=== PATIENT | male | born 1980 | race Asian ===

== ENCOUNTER 2018-04-20 10:24 | Day surgery (SDC) | payer OTHER ==
[2018-04-20] MEDS ORDERED: SOD CHLORIDE 0.9% 1,000 ML IV (11:30)
[2018-04-20] MEDS: LIDOCAINE 1% (MPF) 5 ML VIAL ×2 (14:10→14:20)
[2018-04-20] MEDS: FENTAnyl 50 MCG/ML VIAL (14:20)
[2018-04-20] MEDS: MIDAZOLAM 1 MG/ML 2 ML INJ (14:25)
== END 2018-04-20 17:50 | disposition home or self-care (01) ==
LOC: SDS 10:24
DX: C82.10 Follicular lymphoma grade II, unspecified site (principal)
CPT/HCPCS: 38221; 77012; 88305; 88311; 88313

== ENCOUNTER 2018-05-08 07:53 | Day surgery (SDC) | payer OTHER ==
[2018-05-08] MEDS: SOD CHLORIDE 0.9% 1,000 ML IV ×2 (08:57→11:00)
[2018-05-08] MEDS: CEFAZOLIN 1 GM/50 ML (PMX) 50 ML IVPB ×2 (10:00→10:50)
[2018-05-08] MEDS: FENTAnyl 50 MCG/ML VIAL (10:50)
[2018-05-08] MEDS: LIDOCAINE 1%/EPI 30 ML INJ (10:50)
[2018-05-08] MEDS: MIDAZOLAM 1 MG/ML 2 ML INJ (10:51)
[2018-05-08] MEDS: HEPARIN 1000 UNITS/ML 10 ML INJ (10:59)
[2018-05-08] MEDS: POLYMYXIN/BACITRACIN 1L IRRIG IRR (11:30)
[2018-05-08] MEDS ORDERED: HYDROCODONE/APAP (5/325) TAB PO (12:00)
== END 2018-05-08 13:50 | disposition home or self-care (01) ==
LOC: SDS 07:53
DX: C82.11 Follicular lymphoma grade II, lymph nodes of head, face, and neck (principal)
CPT/HCPCS: 36561; 76942

== ENCOUNTER 2018-07-03 10:01 | Emergency (ER) | payer OTHER ==
[2018-07-03] MEDS: LIDOCAINE 1% (MPF) 5 ML VIAL SC (11:00)
[2018-07-03 11:23] LABS: ADD MAN DIFF? NO
[2018-07-03 11:26] LABS: ABNORMAL IP MESSAGE 1; BASOPHIL # 0.1 10^3/ul (0.0-0.1); BASOPHILS % 0.4 % (0.0-2.0); EOSINOPHILS % 0.1 % (0.0-7.0); HEMATOCRIT 44.1 % (42.0-52.0); HEMOGLOBIN 14.4 g/dl (14.0-18.0); LYMPHOCYTES # 2.2 10^3/ul (0.8-2.9); LYMPHOCYTES % 18.5 % (15.0-51.0); MEAN CORPUSCULAR HEMOGLOBIN 29.3 pg (29.0-33.0); MEAN CORPUSCULAR HGB CONC 32.7 g/dl (32.0-37.0); MEAN CORPUSCULAR VOLUME 89.6 fl (82.0-101.0); MEAN PLATELET VOLUME 9.5 fl (7.4-10.4); MONOCYTE # 1.6 10^3/ul (0.3-0.9); MONOCYTES % 13.6 % (0.0-11.0); NEUTROPHIL # 7.8 10^3/ul (1.6-7.5); NEUTROPHILS % 66.4 % (39.0-77.0); PLATELET COUNT 409 10^3/UL (140-415); POSITIVE DIFF @See below; RED BLOOD COUNT 4.92 10^6/ul (4.70-6.10); RED CELL DISTRIBUTION WIDTH 13.7 % (11.5-14.5)
[2018-07-03 11:26] LABS: WHITE BLOOD COUNT 11.8 10^3/ul (4.8-10.8)
[2018-07-03 11:43] LABS: ANION GAP 8 (5-13); BLOOD UREA NITROGEN 11 mg/dl (7-20); CALCIUM 9.2 mg/dl (8.4-10.2); CARBON DIOXIDE 32 mmol/L (21-31); CHLORIDE 103 mmol/L (97-110); CREATININE 0.66 mg/dl (0.61-1.24); Estimated GFR > 60 mL/min (>60); GLUCOSE 88 mg/dl (70-220); POTASSIUM 3.7 mmol/L (3.5-5.1); SODIUM 143 mmol/L (135-144)
[2018-07-03 11:45] LABS: INR 0.89; PARTIAL THROMBOPLASTIN TIME 30.4 Sec (23.0-35.0); PROTIME 12.1 Sec (11.9-14.9); PT RATIO 0.9
[2018-07-03] MEDS: POLYMYXIN/BACITRACIN 1L IRRIG IRR (15:27)
== END 2018-07-03 15:47 | disposition home or self-care (01) ==
LOC: E/R 10:01
DX: C85.90 Non-Hodgkin lymphoma, unspecified, unspecified site (principal)
CPT/HCPCS: 36415; 36569; 71045; 76937; 80048; 85025; 85610; 85730; 99285-25

== ENCOUNTER → 2018-07-03 | Outpatient (CLI) | payer OTHER ==
[~2018-07-03] MED LIST: HEPARIN 1000 UNITS/ML 10 ML INJ; IOHEXOL 300MG/ML 30 ML BTL; LIDOCAINE 1% (MPF) 5 ML VIAL
== END | disposition home or self-care (01) ==
LOC: RAD 08:27
DX: C82.90 Follicular lymphoma, unspecified, unspecified site (principal)
CPT/HCPCS: Z7610